=== PATIENT | male | born 1965 | race Caucasian/White ===

== ENCOUNTER 2019-05-07 11:34 | Inpatient (IN) ==
[2019-05-07] MEDS ORDERED: DILAUDID IV PRN (11:46)
[2019-05-07] MEDS ORDERED: PHENERGAN IV PRN ×2 (11:46→20:30)
[2019-05-07] MEDS ORDERED: SODIUM CHLORIDE 0.9% INJ SCH (12:00)
[2019-05-07] MEDS ORDERED: NS 1,000 ML IV SCH (12:00)
--- NOTE | 2019-05-07 13:25 | Diag Imaging Result Doc PS360 ---
CT abdomen pelvis without and with intravenous contrast - 05/07/2019 INDICATION: Abdominal pain COMPARISON: 02/12/2019 FINDINGS: There are several stones in the right kidney, and one small stone on the left side. There is no hydronephrosis. The largest right renal stone measures about 13.5 mm. The left renal stone measures about 3 mm. The vermiform appendix is extremely dilated with severe surrounding inflammation. There is also some trace surrounding fluid, and possible contained extra visceral gas. No drainable fluid. Urinary bladder, prostate, and rectum are normal. No bowel obstruction or significant constipation. There are moderate degenerative changes of the spine. No acute or suspicious bony lesion. IMPRESSION: 1. Acute appendicitis. Possible early perforation but no drainable abscess. This report was discussed with RT Petra on 05/07/2019 at 1:20 PM and was readback. This exam was performed using automated exposure control, adjustment of mA or kV according to patient size, and/or use of iterative reconstruction technique Electronically signed by Jeff Alamo 05/07/2019 1:22 PM
[2019-05-07] MEDS ORDERED: VERSED ONE (14:42)
[2019-05-07] MEDS ORDERED: FENTANYL ONE ×2 (14:43→16:30)
[2019-05-07] MEDS ORDERED: DIPRIVAN 1% ONE (14:44)
[2019-05-07] MEDS ORDERED: LR 1,000 ML ONE ×2 (14:50→15:36)
[2019-05-07] MEDS ORDERED: ZOSYN 3.375 GM in NS 50 ML IV ONE (15:30)
[2019-05-07] MEDS ORDERED: SENSORCAINE 0.25%/EPI 1:200,000 ONE (15:35)
[2019-05-07] MEDS ORDERED: D5 1/2 NS + KCL 20 MEQ 1,000 ML ONE (16:50)
[2019-05-07 17:16] LABS: URINE SOURCE CATH
[2019-05-07 17:19] LABS: BILIRUBIN URINE NEGATIVE (NEGATIVE); BLOOD URINE SMALL (NEGATIVE); COLOR YELLOW; GLUCOSE URINE NEGATIVE (NEGATIVE); KETONE URINE TRACE mg/dL (NEGATIVE); LEUKOCYTES URINE NEGATIVE (NEGATIVE); NITRITE URINE NEGATIVE (NEGATIVE); PROTEIN URINE 70 mg/dL (NEGATIVE); TURBIDITY URINE CLEAR (CLEAR); UROBILINOGEN URINE 4 mg/dL (NORMAL)
[2019-05-07 17:20] LABS: UR EPITHELIAL CELLS <10 /HPF (<10); URINE BACTERIA NEGATIVE /HPF; URINE RBC 20-40 /HPF (<10); URINE WBC <10 /HPF (<10)
[2019-05-07] MEDS: ZOSYN 3.375 GM in NS 50 ML IV SCH ×2 (17:57→23:05)
--- NOTE | 2019-05-07 19:01 | HISTORY AND PHYSICAL ---
REFERRING PHYSICIAN: Dr. Khurram Hernández. CHIEF COMPLAINT: Right lower quadrant abdominal pain. HISTORY OF PRESENT ILLNESS: Mr. Zeke Lindsey is a 53-year-old white male who is being treated for head and neck cancer in [place] with chemotherapy. Over the last 48 hours, he has been experiencing abdominal pain which has localized to his right lower quadrant. He saw Dr. Hernández in his outpatient offices and his white blood cell count was 19, and he was sent to for a CT scan to further evaluate his right lower quadrant pain. The CT scan suggests acute appendicitis with possible rupture. We were asked to evaluate him. PAST MEDICAL HISTORY: Head and neck cancer, receiving chemotherapy at [place]. MEDICATIONS: None, besides his chemotherapy. ALLERGIES: No known drug allergies. SOCIAL HISTORY: He is not a smoker. His is at the bedside. FAMILY HISTORY: His family history was reviewed and noncontributory. REVIEW OF SYSTEMS: A 14 point review of systems was performed and was negative except for the History of Present Illness. PHYSICAL EXAMINATION: GENERAL: Mr. Lindsey is a middle-aged white male of good weight. He is awake, cooperative, looks a little pale. No jaundice. HEENT: No oral lesions. Satisfactory dentition. No cervical or supraclavicular lymphadenopathy. HEART: Regular rate. LUNGS: Clear to auscultation and percussion bilaterally. ABDOMEN: Soft. He is tender in the right lower quadrant. I could palpate no mass. He does have right-sided costovertebral tenderness. RECTAL: Exam was not performed. EXTREMITIES: He does have palpable peripheral pulses. No peripheral edema. NEUROLOGIC: He is alert and oriented x3 and appropriate. IMPRESSION: Acute appendicitis, possible rupture. PLAN: Laparoscopic, possible open, appendectomy this evening. I have discussed the procedure in detail with the patient and his at the bedside, including risks of bleeding, infection, injury to intraabdominal contents from trocar placement, removal of a normal appendix, leakage from the appendiceal stump requiring reoperation for drainage of infection, possible ruptured appendix requiring prolonged hospitalization, and possible intraabdominal drains. He understands the need for surgery and its risks, and he wants to proceed. cc: MD Donald Yi MD
[2019-05-07] MEDS: PROTONIX IV SCH (19:48)
[2019-05-07] MEDS ORDERED: MORPHINE IV PRN (20:23)
--- NOTE | 2019-05-07 21:30 | OPERATIVE NOTE ---
PROCEDURE DATE: 05/07/2019 PREOPERATIVE DIAGNOSIS: Acute appendicitis. POSTOPERATIVE DIAGNOSIS: Acute appendicitis with rupture. PRINCIPAL PROCEDURE: Laparoscopic appendectomy. SURGEON: Marilia Gastelum MD. BURLING AND JOINING SUPERVISOR: jamil Menoncomposite bond technician. ANESTHESIA: General, in addition to local anesthetic. ESTIMATED BLOOD LOSS: 30 mL. DRAINS: None. INDICATIONS: Zeke Lindsey is a 53-year-old, white male, who has recently been diagnosed with head and neck cancer and receiving chemotherapy at the [facility]. For the last 2 days, he has experienced abdominal pain which is localized to his right lower quadrant. He felt it was related to his chemotherapy, but he saw Dr. Jony Hernández today in his outpatient office. His white blood cell count was 19. He was sent for a CT scan of his abdomen and pelvis at [facility], which suggested acute appendicitis as did his exam, and an appendectomy was recommended. FINDINGS: He had a ruptured appendix, right lower quadrant of the abdomen. It was being walled off by the surrounding small bowel and the cecum. There was intra-abdominal contamination with mobilization of this appendix. We were able to remove the appendix, irrigate the area of operation, and we took time to remove it from the pelvis. DESCRIPTION OF PROCEDURE: The patient was brought to the operating room, placed supine, received general anesthesia, and was intubated. The nurses had trouble placing a Garsia catheter. I placed an 18-Kiswahili Garsia catheter myself. The abdomen was prepped and draped within the sterile field. He had received IV Zosyn. We began the procedure by making a curvilinear incision below the umbilicus with a 15-blade scalpel. Veress needle was introduced through this incision into the abdomen. Pneumoperitoneum was established. The Veress needle was removed and I used step trocars. I placed an 11 mm step trocar through this incision into the abdomen. The camera was placed through this port. The abdomen was explored for injury and there was none. I placed 2 other trocars under direct vision of the camera. I placed a 12 mm step trocar in suprapubic area midline under direct vision of the camera, and a 5 mm step trocar in right lower quadrant of the abdomen. The camera was at the umbilicus. I used a grasper and dissector at my lower port sites. The appendix was adhered to the anterior abdominal wall. It was a little bit retrocecal. As we mobilized it, we got into the adjacent abscess cavity and we removed this fluid by suction. There was small bowel adhered to the right anterior abdominal wall in the area of this abscess cavity. I took it down using blunt dissection and cautery. We were able to mobilize the appendix down to its base. Its base was still viable. I was able to come across the base of the appendix using an Endo VIK 30 mm in length gold load. I did use cautery to come across the appendiceal mesentery. I did use a gallbladder clip roping machine tender to control a blood vessel within this mesentery. An endobag was used to remove the appendix through our 12 mm port site. I placed the trocar back through this incision, and the area of operation was thoroughly inspected, irrigated, and the irrigation was removed with suction. We made sure that the fecalith was removed in the area of the ruptured appendix and we made sure all of our irrigation was removed, even down into the pelvis. I decided against leaving a drain. No other intra-abdominal pathology was noted. All trocars removed and pneumoperitoneum was allowed to dissipate. I used [id number] 2-0 Vicryl stitches to reapproximate the fascia at our midline incisions. All skin was closed with 4-0 Monocryl subcuticular stitches. Steri-Strips were applied. I left the Garsia in place because it was difficult to place preoperatively. He will go to the recovery room and then be readmitted overnight. cc: MD Donald Yi MD
--- NOTE | 2019-05-07 22:43 | HISTORY AND PHYSICAL ---
CHIEF COMPLAINT: One-day history of right lower quadrant pain. HISTORY OF PRESENT ILLNESS: He is a 53-year-old, white gentleman who came into our office with 1- day history of right lower quadrant pain, white cell count 19,000. The patient has positive appendicitis signs with tenderness at McBurney point and with guarding and rigidity. Admitted directly to the hospital for acute appendicitis. CT findings were corroborated with early perforation. No draining abscess. There are several stones in the right kidney and 1 small stone in the left side. The largest right renal stone is 13.5 mm. Moderate DJD changes of the spine. I spoke to Dr. Gastelum, and he is going to take him to the operating room this afternoon. 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 PAST SURGICAL HISTORY: Panendoscopy, fine-needle aspiration biopsy left neck mass, superficial melanoma excision on the left shoulder. MEDICATIONS: He is getting radiation therapy. None reported. ALLERGIES: Not known. SOCIAL HISTORY: since 1987. Two children. No smoking. Drinks beer on daily basis. No drug abuse. 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 FAMILY HISTORY: Father of lung cancer. Mother is in good health. REVIEW OF SYSTEMS: HEENT exam: No headache, no vision problem. No sore throat, and swelling of lymph nodes in the left side of the neck. Cardiopulmonary: No chest pain, shortness of breath, PND, orthopnea. Gastrointestinal: Right lower quadrant pain. No swelling of legs. No joint pain. Neurological exam: No focal symptoms or weakness. PHYSICAL EXAMINATION: VITAL SIGNS: Had a low-grade fever, tachycardic. Vitals are stable. HEENT EXAM: Within normal limits. He has a mass in the left side of the neck. CHEST: Clear. CARDIOVASCULAR: Heart sounds are regular. GASTROINTESTINAL: Belly is soft. Tender at McBurney point. EXTREMITIES: No peripheral edema. NEUROLOGICAL: No obvious neurological deficits. INVESTIGATIONS: In my office, CBC: White cell count 98,000. SMA [address] scan findings were noted with acute appendicitis with early perforation. ASSESSMENT AND PLAN: 1. A 53-year-old white gentleman admitted to the hospital with acute appendicitis corroborated. Plan is surgical consult. Repeat the labs in the morning and continue IV fluids, deep venous thrombosis prophylaxis with Lovenox, pain control with morphine, Phenergan for nausea. Continue on IV Zosyn. 2. History of throat cancer under the radiation therapy. 3. Superficial melanoma 0.6 mm thickness. He needs wide excision by Dr. Gastelum down the line, and we will repeat the labs in the morning. cc: Donald Hernández MD
[2019-05-07] MEDS: PERIDEX MT SCH (23:05)
[2019-05-08] MEDS: ZOSYN 3.375 GM in NS 50 ML IV SCH ×4 (04:01→22:50)
[2019-05-08] MEDS: D5 1/2 NS + KCL 20 MEQ 1,000 ML IV SCH ×3 (04:01→19:17)
[2019-05-08] MEDS: LOVENOX SUBQ SCH (05:59)
[2019-05-08 06:52] LABS: BASO# 0.02 X1000 (0.0-0.2); BASO% 0.1 % (0.0-0.8); EOS# 0.04 X1000 (0.0-0.7); EOS% 0.3 % (0.0-10.0); HEMATOCRIT 35.3 % (42.0-52.0); HEMOGLOBIN 11.8 g/dL (14.0-18.0); IMM GRAN# 0.09 X1000 (0.0-0.04); IMM GRAN% 0.6 % (0.0-0.5); LYMPH# 0.53 X1000 (1.2-3.4); LYMPH% 3.4 % (20.5-51.1); MCH 29.5 PG (27-31); MCHC 33.4 g/dL (33-37); MCV 88.3 FL (81-99); MONO# 0.57 X1000 (0.11-0.59); MONO% 3.7 % (1.7-9.3); MPV 10.2 FL (7.4-10.4); NEUT# 14.19 X1000 (1.4-6.5); NEUT% 91.9 % (42.2-75.2); PLT 350 X1000 (130-400); WBC 15.44 X1000 (4.8-10.8)
[2019-05-08 07:08] LABS: AGAP 12; ALB/GLOB RATIO 0.8; ALBUMIN 2.8 g/dL (3.5-5.0); ALKALINE PHOSPHATASE 127 U/L (32-122); BUN 10 mg/dL (8-22); CALCIUM 8.6 mg/dL (8.8-10.2); CHLORIDE 98 mmol/L (98-107); COSMO 271; CREATININE 0.7 mg/dL (0.7-1.2); ESTIMATED GFR > 60; GLUCOSE 197 mg/dL (70-104); GOT 13 U/L (10-34); GPT 22 U/L (10-44); POTASSIUM 4.1 mmol/L (3.5-5.1); SODIUM 133 mmol/L (136-145); TCO2 23 mmol/L (25-35); TOTAL BILIRUBIN 1.22 mg/dL (0.20-1.00); TOTAL PROTEIN 6.3 g/dL (6.3-8.3)
[2019-05-08 08:29] LABS: BANDS 1 % (0-1); LYMPHS 4 % (21-51); MONO 3 % (1-9); SEGS 92 % (42-75)
[2019-05-08] MEDS: PERIDEX MT SCH ×2 (08:34→20:27)
[2019-05-08] MEDS ORDERED: FLOMAX PO SCH (09:00)
[2019-05-08] MEDS: PROTONIX IV SCH (16:06)
--- NOTE | 2019-05-08 18:37 | PROGRESS NOTE ---
DATE: 05/08/2019 SUBJECTIVE: Mr. Lindsey is now postop day 1 from a laparoscopic appendectomy for acute appendicitis with rupture. He is awake. Clinically he feels better. OBJECTIVE: Vital Signs: His heart rate is 84, blood pressure 133/74, O2 saturation 98%. He is afebrile. ASSESSMENT: On IV Zosyn because of his ruptured appendix. His Garsia catheter tube has been removed, and he is voiding without difficulty. PLAN: We will continue his IV antibiotics. We will advance his diet as tolerated. It must be noted that he is receiving chemotherapy for head and neck cancer at [place]. cc: MD Donald Yi MD
--- NOTE | 2019-05-08 22:40 | PROGRESS NOTE ---
DATE: 05/08/2019 SUBJECTIVE: I appreciated Dr. Gastelum had the lap appendectomy done. Garsia was taken out. CT findings discussed, he has kidney stones as well. PHYSICAL EXAM: Vital signs: Temperature is 98 degrees, pulse 98, vitals are stable. HEENT: Within normal limits. Neck: Supple with lymph nodes present on the left side of the neck. Chest: Clear. Heart: Sounds are regular. Abdomen: Belly is soft, nontender. Good bowel sounds. Neurologic: No obvious neurological deficits. INVESTIGATIONS: White cell count 15, hematocrit 35, platelets 350,000. Sodium 133, potassium 4.1, BUN 10, creatinine 0.7. Glucose 197. LFTs were slightly High. ASSESSMENT AND PLAN: 1. Stage III squamous cell carcinoma of the throat. Under chemotherapy in [place]. 2. Superficial melanoma, left shoulder, stable. 3. Status post appendectomy. Continue IV antibiotics with Zosyn, and check the CBC and CMP. 4. Continue IV fluids, clear liquids. The patient has not had any history of flatus. Continue to monitor over the weekend, and Dr. Nielsen is going to follow up. 5. DVT prophylaxis with Lovenox. LEVEL OF DOCUMENTATION: 25 minutes. cc: Donald Hernández MD MTDD
[2019-05-08] MEDS: NORCO-10 PO PRN (22:50)
[2019-05-09] MEDS: LOVENOX SUBQ SCH (05:11)
[2019-05-09] MEDS: ZOSYN 3.375 GM in NS 50 ML IV SCH (05:11)
[2019-05-09] MEDS: NORCO-10 PO PRN (05:14)
[2019-05-09 07:48] LABS: HEMATOCRIT 33.3 % (42.0-52.0); HEMOGLOBIN 10.9 g/dL (14.0-18.0); MCH 29.2 PG (27-31); MCHC 32.7 g/dL (33-37); MCV 89.3 FL (81-99); RBC 3.73 XMIL (4.7-6.1); RDW 13.1 % (11.5-14.5); WBC 9.84 X1000 (4.8-10.8)
[2019-05-09 07:49] LABS: BASO# 0.02 X1000 (0.0-0.2); BASO% 0.2 % (0.0-0.8); EOS# 0.02 X1000 (0.0-0.7); EOS% 0.2 % (0.0-10.0); IMM GRAN# 0.04 X1000 (0.0-0.04); IMM GRAN% 0.4 % (0.0-0.5); LYMPH# 0.92 X1000 (1.2-3.4); LYMPH% 9.3 % (20.5-51.1); MONO# 0.98 X1000 (0.11-0.59); MPV 10.2 FL (7.4-10.4); NEUT# 7.86 X1000 (1.4-6.5); NEUT% 79.9 % (42.2-75.2); PLT 366 X1000 (130-400)
[2019-05-09 08:02] VITALS: BP 137/80
[2019-05-09 08:18] LABS: AGAP 10; ALB/GLOB RATIO 0.8; ALBUMIN 2.7 g/dL (3.5-5.0); ALKALINE PHOSPHATASE 185 U/L (32-122); BUN 9 mg/dL (8-22); CALCIUM 8.1 mg/dL (8.8-10.2); CHLORIDE 104 mmol/L (98-107); COSMO 272; CREATININE 0.7 mg/dL (0.7-1.2); ESTIMATED GFR > 60; GLUCOSE 95 mg/dL (70-104); GOT 148 U/L (10-34); GPT 148 U/L (10-44); POTASSIUM 4.4 mmol/L (3.5-5.1); SODIUM 137 mmol/L (136-145); TCO2 23 mmol/L (25-35); TOTAL BILIRUBIN 0.79 mg/dL (0.20-1.00); TOTAL PROTEIN 6.2 g/dL (6.3-8.3)
[2019-05-09] MEDS: PERIDEX MT SCH (10:04)
--- NOTE | 2019-05-09 11:15 | PROGRESS NOTE ---
DATE: 05/09/2019 SUBJECTIVE: Patient doing well. No complaints. OBJECTIVE: Vital Signs: Afebrile, pulse 88, respirations 16, blood pressure 137/80, O2 saturation on room air 100%. CV: RRR without murmur. Lungs: CTA. Extremities: No calf tenderness, cords or edema. Neurologic: Nonfocal. Cranial nerves are intact. LABS: White count down from yesterday on admission 15 and now is 9.8. Today, status post appendectomy. Hemoglobin 10.9, platelets 366. CMP shows elevation in his liver function test. He is asymptomatic from this. This may be potentially even related to anesthesia. ASSESSMENT: 1. Postoperative day #2 status post laparoscopic appendectomy. 2. Mild elevation of liver function tests. 3. Stage III squamous cell carcinoma of the throat, undergoing chemotherapy at [place]. 4. Left shoulder superficial melanoma. PLAN: He will follow up with Dr. Gastelum and with Dr. Hernández in the next week. He has been discharged on Augmentin and some narcotic pills as needed per Dr. Mike. He may use Phenergan or Zofran as needed for nausea or vomiting. Dr. Hernádnez will follow up with repeat LFTs within a week in his office. cc: MD Donald Jerome MD
--- NOTE | 2019-05-09 15:11 | GENERAL SURGERY PROGRESS NOTE ---
DATE: 05/09/2019 SUBJECTIVE: Mr. Lindsey is postop day two from a laparoscopic appendectomy. There was some contamination. PLAN: The plan will be to discharge him home on Augmentin. We will give him some pain medicine. We discussed his activity. They were to call Dr. Gastelum's office on Saturday for followup appointment. cc: MD Donald Arellano MD
--- NOTE | 2019-05-10 19:42 | DISCHARGE SUMMARY ---
ADMISSION DATE: 05/07/2019 DISCHARGE DATE: 05/09/2019 DISCHARGING DIAGNOSIS: Acute abdominal pain due to ruptured appendix. SECONDARY DIAGNOSES: 1. Bilateral kidney stones, asymptomatic. 2. Stage III squamous cell hypopharyngeal cancer with positive lymph nodes. 3. Stage I superficial melanoma 0.6 mm thickness over the left shoulder. CONSULTS: Dr. Gastelum. PROCEDURES: Lap appendectomy. BRIEF HISTORY: Please see the H and P that was done on 05/07/2019. In brief he is a 53-year-old, white gentleman admitted to the hospital from my office with 1-day history of right lower quadrant pain. Clinical picture is compatible with acute appendicitis. White cell count 19,000. The patient was admitted and confirmed by CT scan and Dr. Gastelum did the lap appendectomy. Postoperative course was uneventful. The Garsia was discontinued. He also has incidental bilateral kidney stone, right is worse than the left side. LABS: At the time of discharge CBC: White cell count 9.8, hematocrit 33, platelets 366,000. Sodium 137, potassium 4.4, chloride 104, BUN 9, creatinine 0.7 glucose 95. LFTs were high- AST, ALT, alkaline phosphatase. Urinalysis is clear. CT scan of the abdomen and pelvis: Acute appendicitis right renal stone, 1.4 cm, left one is 3 mm. DISCHARGE INSTRUCTIONS: 1. Follow up on elevated liver function tests. 2. Augmentin 1 tablet p.o. b.i.d., [place] as needed for pain. 3. Patient is undergoing chemotherapy for throat cancer stage III squamous cell HPV related in [place]. 4. Follow up in my office next week as well as Dr. Gastelum. cc: MD Marilia Paz MD Naveen T. Lobo, MD
== END 2019-05-09 10:58 | disposition home or self-care (01) | DRG 339 ==
LOC: DIRADM 11:34 → 4N 17:25
PROVIDERS: ADMIT Internal Medicine; ATTEND Internal Medicine